=== PATIENT | female | born 1955 | race Caucasian/White ===

== ENCOUNTER 2020-08-17 12:23 | Outpatient (CLI) | payer OTHER, SELFPAY ==
--- NOTE | ~2020-08-17 | US_ITS ---
EXAMINATION: US thyroid DATE: 08/17/2020 14:33 INDICATION: Multinodular goiter. TECHNIQUE: Multiple ultrasound images of the thyroid were obtained. COMPARISON: Ultrasound 07/31/2018 FINDINGS: The right thyroid lobe measures 7.7 x 5.9 x 3.1 cm. The left thyroid lobe is absent . There are nodu les throughout the right thyroid lobe of similar ultrasound appearance without normal intervening par enchyma. For example, in the right thyroid lobe, there is a 5.6 cm solid, hypoechoic, [id number] nodule with ill-defined margin without echogenic foci (TI-RADS TR4). In the right thyroid lobe, ther e is a 3.1 cm solid, hypoechoic, [id number] nodule with ill-defined margin without echogenic foc i (TR4). IMPRESSION: 1. Chronic multinodular goiter. The largest nodule was biopsied today. Reviewed, dictated and finalized at location A.
--- NOTE | ~2020-08-17 | US_ITS ---
EXAMINATION: US FNA w image guidance DATE: 08/17/2020 14:30 INDICATION: Multinodular goiter. TECHNIQUE: The procedure and its benefits, risks, and benefits were discussed with the patient. Risks specifical ly discussed included bleeding. The patient verbalized understanding of the risks and agreed to proce ed. The neck was prepped and draped in the usual sterile manner. 1% lidocaine was used for local ane sthesia. 5 passes were made with a 25G needle into the lesion. Appropriate needle location was docu mented with continuous sonographic guidance. There were no immediate complications. The patient unde rstood to call the ordering physician for results after a week and a half and verbalized that underst anding. FINDINGS: Grayscale ultrasound images demonstrate needles advanced into a 5.6 cm nodule in right thyroid lobe f or biopsy. IMPRESSION: 1. Ultrasound-guided fine needle aspiration of a right thyroid nodule. Reviewed, dictated and finalized at location A.
== END 2020-08-17 12:24 | disposition home or self-care (01) ==
PROVIDERS: PCP Internal Medicine; Visit Provider Internal Medicine Endocrinology, Diabetes & Metabolism
DX: E04.2 Nontoxic multinodular goiter (principal)
CPT/HCPCS: 10005; 76536; 88173; 88305

== ENCOUNTER 2020-10-23 01:29 | Outpatient (CLI) | payer OTHER, SELFPAY ==
[2020-10-23 21:24] LABS: SARS-CoV-2 RNA PCR Negative
== END 2020-10-23 01:30 | disposition home or self-care (01) ==
LOC: ANHCOVIDDT 01:29
PROVIDERS: PCP Internal Medicine; Visit Provider Internal Medicine Gastroenterology
DX: Z01.812 Encounter for preprocedural laboratory examination (principal); Z20.828 Contact with and (suspected) exposure to other viral communicable diseases
CPT/HCPCS: 87635; C9803; U0003

== ENCOUNTER 2020-10-26 01:09 | Day surgery (SDC) | payer OTHER, SELFPAY ==
[2020-10-14 13:47] VITALS: BMI 28.1
[2020-10-26 10:42] VITALS: BP 138/78; PULSE 76; RESP 18; TEMP 36.6; O2SAT 98
[2020-10-26] MEDS: LACTATED RINGERS 1,000 ML 150 ML IV CONT (10:57)
--- NOTE | 2020-10-26 11:35 | WPDANESEPPF ---
Anes - Initial Pre Proc Eval Procedure: Operation Date: 10/26/20 12:00 Proposed Procedures p Colonoscopy - Osbaldo Baires DO Date/Time: 10/26/20 11:35 Surgeon: Osbaldo Baires DO Pre Op Diagnosis: Colon Polyps Patient Data Age: 65 Gender: F Height: 5 ft 4 in Weight: 71.6 kg Last Vital Signs Temp 97.8 F 10/26/20 10:42 Pulse 76 10/26/20 10:42 Resp 18 10/26/20 10:42 BP 138/78 10/26/20 10:42 Pulse Ox 98 10/26/20 10:42 Allergies Allergy/AdvReac Type Severity Reaction Status Date / Time No Known Allergies Allergy Verified 10/26/20 10:40 Home Medications Medication Instructions Recorded Confirmed Type B-complex with vitamin C 1 cap PO DAILY 10/07/19 10/14/20 History ascorbate calcium (vitamin C) 500 500 mg PO DAILY 10/07/19 10/14/20 History mg tablet omega-3 fatty acids 1,000 mg 1,000 mg PO DAILY 10/07/19 10/14/20 History capsule vitamin E mixed 1,000 unit capsule 1,000 unit PO DAILY 10/07/19 10/14/20 History calcium carbonate 600 mg calcium 600 mg PO DAILY 02/03/20 10/14/20 History (1,500 mg) tablet garlic extract 600 mg tablet 600 mg PO DAILY tablet 02/03/20 10/14/20 History conrad (Zingiber officinalis) 250 250 mg PO DAILY 02/03/20 10/14/20 History mg capsule lisinopril 20 mg tablet 20 mg PO DAILY #90 tablet 05/14/20 10/14/20 Rx atorvastatin 20 mg tablet 20 mg PO DAILY #90 tablet 08/18/20 10/14/20 Rx ergocalciferol (vitamin D2) 1,250 50,000 unit PO .3xweek #39 cap 09/07/20 10/14/20 Rx mcg (50,000 unit) capsule Patient hx anesthesia problems: none Family hx anesthesia problems: none PMFSH Past Medical History Medical History (Updated 10/26/20 @ 11:32 by Rito Ruiz MD) Hypertension Surgical History Surgical History History of appendectomy History of colostomy History of thyroid surgery Family History Family History Father Patient's father is Social History Social History Smoking status: Never smoker Second hand tobacco smoke exposure: No Alcohol intake: current Substance use: unknown Substance use type: unknown Living arrangements: with family Spiritual care concerns: No Anes - Eval Final PreProcedure Day of Procedure 10/26/20 11:35 Patient weight: normal Heart: regular rate and rhythm Lungs: clear to auscultation Airway: Mallampati scale class II Neurological: alert and oriented Last oral intake: >/= 8 hours ASA classification: II Emergent: no Anesthetic plan: proceed Anesthesia type and monitoring: general GIVS and standard monitoring Informed Consent: The patient's anesthetic plan and its attendant risks and benefits were discussed with the patient/family/POA. Questions were solicited and answers provided to the satisfaction of the patient/family/POA.
--- NOTE | 2020-10-26 12:34 | PM.IMHP ---
H&P: HPI History of Present Illness Date/Time: 10/26/20 12:34 Chief complaint: Colon Polyps Narrative: Reason for visit is colonoscopy. This very pleasant lady's being evaluated the request of the primary physician. Impression: Screening and surveillance colonoscopy. Patient's history adenomatous colon polyps. She does have chronic constipation which probably due to IBS with constipation. Does complain of occasional rectal bleeding which is probably perianal in origin. HTN. HLD. Recommendation: Colonoscopy. History: this very pleasant lady's being evaluated for history of adenomatous colon polyps. She complains of constipation goes less than every other day. She reports approximately a 10 lb weight loss over the last 3 months. Upper gastrointestinal symptoms at night. She does have a history of bright red blood per rectum. Usually consist of blood on the tissue paper. She is here for colonoscopy. Physical examination: General: very pleasant patient in no acute distress. HEENT: Head was normocephalic sclerae is clear mouth without masses neck was supple. Heart: Rate rhythm regular without S3 or S4. Lungs: CTA. Abdomen: Soft with no guarding or rigidity. Bowel sounds were active. Neurologic: Cranial nerves 2 through 12 intact. No focal defects. No clonus. Musculoskeletal system: Revealed no joint tenderness or swelling no muscle atrophy. Extremities: Reveal no significant edema. Skin: Warm and dry with normal turgor. Mental status: intact. Patient is alert and oriented. Review of Systems Review of Systems: All systems reviewed & are unremarkable except as noted in HPI and below PMFSH Past Medical History Medical History (Updated 10/26/20 @ 11:32 by Rito Ruiz MD) Hypertension Surgical History Surgical History History of appendectomy History of colostomy History of thyroid surgery Family History Family History Father Patient's father is Social History Social History Smoking status: Never smoker Second hand tobacco smoke exposure: No Alcohol intake: current Substance use: unknown Substance use type: unknown Living arrangements: with family Spiritual care concerns: No Meds Home Medications and Allergies Home Medications Medication Instructions Recorded Confirmed Type B-complex with vitamin C 1 cap PO DAILY 10/07/19 10/14/20 History ascorbate calcium (vitamin C) 500 500 mg PO DAILY 10/07/19 10/14/20 History mg tablet omega-3 fatty acids 1,000 mg 1,000 mg PO DAILY 10/07/19 10/14/20 History capsule vitamin E mixed 1,000 unit capsule 1,000 unit PO DAILY 10/07/19 10/14/20 History calcium carbonate 600 mg calcium 600 mg PO DAILY 02/03/20 10/14/20 History (1,500 mg) tablet garlic extract 600 mg tablet 600 mg PO DAILY tablet 02/03/20 10/14/20 History conrad (Zingiber officinalis) 250 250 mg PO DAILY 02/03/20 10/14/20 History mg capsule lisinopril 20 mg tablet 20 mg PO DAILY #90 tablet 05/14/20 10/14/20 Rx atorvastatin 20 mg tablet 20 mg PO DAILY #90 tablet 08/18/20 10/14/20 Rx ergocalciferol (vitamin D2) 1,250 50,000 unit PO .3xweek #39 cap 09/07/20 10/14/20 Rx mcg (50,000 unit) capsule Allergies Allergy/AdvReac Type Severity Reaction Status Date / Time No Known Allergies Allergy Verified 10/26/20 10:40 Vital Signs Vital Signs - 24 hr 10/26/20 10:42 Temperature 36.6 C Pulse Rate 76 Respiratory Rate 18 Blood Pressure 138/78 Pulse Oximetry 98
[2020-10-26 13:00] VITALS: BP 94/59; PULSE 72; RESP 16; O2SAT 99
[2020-10-26 13:10] VITALS: BP 94/56; PULSE 71; RESP 16; O2SAT 99
[2020-10-26 13:20] VITALS: BP 122/65; PULSE 71; RESP 16; O2SAT 99
== END 2020-10-26 13:30 | disposition home or self-care (01) ==
PROVIDERS: PCP Internal Medicine; Visit Provider Internal Medicine Gastroenterology
PROC: 0DJD8ZZ Inspection of Lower Intestinal Tract, Via Natural or Artificial Opening Endoscopic (ICD-10-PCS; CPT 45378; principal; 2020-10-26 12:00)
DX: Z12.11 Encounter for screening for malignant neoplasm of colon (principal); K63.5 Polyp of colon; K64.8 Other hemorrhoids; I10 Essential (primary) hypertension
CPT/HCPCS: 45380; 87635; 88305; C9803; J2001; J2704; J7120; U0003

== ENCOUNTER 2021-08-09 08:41 | Outpatient (CLI) | payer OTHER, SELFPAY ==
--- NOTE | ~2021-08-09 | US_ITS ---
EXAMINATION: US thyroid DATE: 08/09/2021 09:15 INDICATION: Thyroid nodules TECHNIQUE: Multiple ultrasound images of the thyroid were obtained. COMPARISON: 08/17/2020 FINDINGS: The left thyroid lobe is not visualized consistent with provided history of prior left thyroidectomy with no abnormal tissue in the left thyroid fossa. The right thyroid lobe measures 8.4 x 2.6 x 5.4 cm . No interval change in the largest 5.4 cm wider than tall solid hypoechoic nodule with smooth well- defined margins and without echogenic foci (TI-RADS 4, moderately suspicious , FNA if >=1.5 cm, annua l followup is >=1 cm) in the more superior right thyroid lobe. This was biopsied at the time of the p rior imaging with pathology read as consistent with benign follicular nodule. Also without interval changes 2 additional solid TI-RADS 4 nodule with similar imaging features wedging 2.0 cm in maximal diameter in the mid right thyroid and 1.8 cm, decreased from 3.1 centimeter in the inferior left thyr oid lobe. No new or enlarging nodules identified.. IMPRESSION: 1. 3 similar-appearing TI RADS 4 nodules in the right thyroid lobe, the largest with prior benign bio psy. The remaining 2 nodules in order of size are decreased and unchanged compared with the prior catherine dy. No new or enlarging nodules identified and scheduled biopsy was deferred. Reviewed, dictated and finalized at location A. IMPRESSION: 1. 3 similar-appearing TI RADS 4 nodules in the right thyroid lobe, the largest with prior benign biopsy. The remaining 2 nodules in order of size are decreas ed and unchanged compared with the prior study. No new or enlarging nodules [place] ntified and scheduled biopsy was deferred.
== END 2021-08-09 08:42 | disposition home or self-care (01) ==
LOC: ANHIMG 08:49
PROVIDERS: PCP Internal Medicine; Visit Provider Internal Medicine Endocrinology, Diabetes & Metabolism
DX: E04.2 Nontoxic multinodular goiter (principal)
CPT/HCPCS: 76536